=== PATIENT | female | born 1985 | race Caucasian/White ===

== ENCOUNTER 2018-05-18 12:05 | Emergency (ER) | payer OTHER, MEDICAID ==
[~2018-05-18] VITALS: Ht 165.1 cm; Wt 81.7 kg
[~2018-05-18 12:05] MED LIST: AMOXICILLIN875 MG PO; AZO BLADDER CO300 MG PO; BACTRIM DS TAB1 EACH PO; CEFDINIR300 MG PO; CELEXA20 MG; CIPRO500 M1 PO; CLONAZEPAM 1 MG1 M1; DIFLUCAN150 M1 PO; IBUPROFEN 800800 MG PO; JINTELI 1 MG-51 EACH; LEVAQUIN 500 M500 M2 PO; MOTION RELIEF25 MG PO; MUCINEX TA600 MG/TA2 PO; NASONEX17 GM NASAL; NORCO 5-325 TA1 EACH PO; PHENERGAN 25 MG25 M1 PO; PROMETHAZINE12.5 M1 PO; PYRIDIUM100 M1 PO; PYRIDIUM200 MG PO; ROXICET 5-325 OR5 ML PO; TRAMADOL 50 MG50 MG PO; ZOFRAN ODT4 MG PO
[2018-05-18] MEDS ORDERED: AMOXICILLIN 50500 MG PO (12:29)
[2018-05-18] MEDS ORDERED: IBUPROFEN 800800 MG PO (12:29)
[2018-05-18 12:33] VITALS: BP 128/80
== END 2018-05-18 12:34 | disposition home or self-care (01) ==
LOC: M.ERS 12:05
DX: H66.91 Otitis media, unspecified, right ear (principal); F41.9 Anxiety disorder, unspecified; F17.210 Nicotine dependence, cigarettes, uncomplicated; Z87.440 Personal history of urinary (tract) infections; Z98.890 Other specified postprocedural states

== ENCOUNTER 2018-10-03 14:38 | Emergency (ER) | payer OTHER, MEDICAID ==
[~2018-10-03] VITALS: Ht 165.1 cm; Wt 81.7 kg
[~2018-10-03 14:38] MED LIST changes: +AMOXICILLIN 50500 MG PO
[2018-10-03] MEDS ORDERED: NORCO 5-325 TA1 EAC1 PO (15:08)
[2018-10-03] MEDS ORDERED: PENICILLIN VK500 M1 PO (15:08)
[2018-10-03 15:33] VITALS: BP 152/70
== END 2018-10-03 15:34 | disposition home or self-care (01) ==
LOC: M.ERS 14:38
DX: H66.91 Otitis media, unspecified, right ear (principal); K04.7 Periapical abscess without sinus; F17.210 Nicotine dependence, cigarettes, uncomplicated; F41.9 Anxiety disorder, unspecified; Z98.890 Other specified postprocedural states

== ENCOUNTER 2019-05-18 15:54 | Emergency (ER) | payer OTHER, MEDICAID ==
[~2019-05-18] VITALS: Ht 165.1 cm; Wt 81.7 kg
[~2019-05-18 15:54] MED LIST changes: +NORCO 5-325 TA1 EAC1 PO; +PENICILLIN VK500 M1 PO
[2019-05-18 16:36] LABS: ABSOLUTE BASOPHILS 0.1 thou/uL (0.0-0.2); ABSOLUTE EOSINOPHILS 0.3 thou/uL (0.0-0.7); ABSOLUTE MONOCYTES 0.3 thou/uL (0.0-1.2); ABSOLUTE NEUTROPHILS 3.8 thou/uL (1.6-8.1); BASOPHILS 0.8 %; HEMATOCRIT 41.1 % (37.0-47.0); LYMPHOCYTES 31.6 %; MCH 30.8 pg (26.0-34.0); MCV 90.8 fL (80.0-100.0); MONOCYTES 4.6 %; NUCLEATED RBCS 0 /100WBC; PLATELET COUNT* 252 thou/uL (150-400); RBC 4.53 mil/uL (4.20-5.00); RDW-CV 12.9 % (10.5-14.5); WBC 6.4 thou/uL (4.0-11.0)
[2019-05-18 16:42] LABS: CALCIUM 8.6 mg/dL (8.5-10.1); CREATININE 0.8 mg/dL (0.6-1.3); POTASSIUM 3.8 mmol/L (3.5-5.1)
[2019-05-18 16:47] LABS: ALBUMIN 4.1 g/dL (3.4-5.0); TOTAL BILIRUBIN 0.5 mg/dL (<0.1-1.0); TOTAL PROTEIN 7.4 g/dL (6.4-8.2)
[2019-05-18] MEDS ORDERED: KEFLEX500 M1 PO (18:38)
[2019-05-18 18:50] VITALS: BP 126/87
--- NOTE | 2019-05-19 12:00 | EKG ---
[place] [address] ELECTROCARDIOGRAM REPORT Name: LIDIA WARE Room: [facility]#: [id number] Admission: 05/18/19 Attend Phys: Discharge: 05/18/19 Date of : 85 Report #: [id number] THIS REPORT FOR: //name// [facility] ED Test Date: 2019-05-18 Test Time: 16:34:42 Pat Name: LIDIA WARE Department: Room: Gender: F Cook [place]: ED : 1985 Requested By: Yvrose Tovar Order Number: [id number] MD: Henrry Manuel Measurements Intervals [place] Rate: 65 P: 35 W[place]: 159 QRS: 1 QRSD: 96 T: 24 QT: 398 QTc: 414 Interpretive Statements Sinus rhythm Atrial premature complex Probable left ventricular hypertrophy Compared to ECG 07/05/2015 23:01:31 Atrial premature complex(es) now present Sinus bradycardia no longer present Electronically Signed On 05-19-2019 12:00:06 CDT by Henrry Manuel [email or web address] <ELECTRONICALLY SIGNED> By: Henrry Manuel MD, [facility] 05/19/19 [facility] 1634 [id number] Henrry Manuel MD, [facility] /EPI
== END 2019-05-18 18:50 | disposition home or self-care (01) ==
LOC: M.ERS 15:54
PROVIDERS: Nurse Practitioner Family
DX: R07.89 Other chest pain (principal); L73.9 Follicular disorder, unspecified; R59.1 Generalized enlarged lymph nodes; F41.9 Anxiety disorder, unspecified; F17.210 Nicotine dependence, cigarettes, uncomplicated; Z98.890 Other specified postprocedural states; Z87.440 Personal history of urinary (tract) infections